=== PATIENT | male | born 1965 | race African-American/Black ===

== ENCOUNTER 2020-04-20 06:05 | Emergency (ER) | payer OTHER ==
[~2020-04-20] VITALS: Ht 167.6 cm; Wt 86.6 kg
[~2020-04-20 06:05] MED LIST: ALDACTONE25 MG PO; AMLODIPINE BESY MC; APAP500 PO; BACTRIM DS TAB1 EACH PO; BLACK CHERRY EXTRACT PO; CARVEDILOL25 MG PO; DEMADEX20 MG PO; FLAGYL500 MG PO; FLEXERIL PO; LISINOPRIL20 MG; LISINOPRIL40 MG PO; MEDROLDOSEPACK PO; ULTRAM 50MG TAB50 MG PO; ZESTRIL40 MG PO; ZYLOPRIM300 MG PO; [UNRECOGNIZED DRUG - OTHER]
[2020-04-20] MEDS ORDERED: CARVEDILOL25 MG PO (06:16)
[2020-04-20] MEDS ORDERED: CARDIZEM SR 60M60 MG (06:17)
[2020-04-20] MEDS ORDERED: FAMOTIDINE 20 M20 MG PO (06:18)
[2020-04-20] MEDS ORDERED: ANTACID325 MG PO (06:19)
[2020-04-20 07:41] LABS: HEMATOCRIT 24.5 % (42.0-52.0); HEMOGLOBIN 8.3 gm/dL (14.0-18.0); MCH 28.1 pg (26.0-34.0); MCHC 33.8 g/dL (28.0-37.0); RBC 2.96 mil/uL (4.50-6.00); RDW 15.7 % (10.5-14.5); WBC 5.8 thou/uL (4.0-11.0)
[2020-04-20 08:08] LABS: CALCIUM 6.6 mg/dL (8.5-10.1); CREATININE 15.8 mg/dL (0.7-1.3); POTASSIUM 4.4 mmol/L (3.5-5.1)
[2020-04-20] MEDS ORDERED: NORCO 5-325 TA1 EAC1 PO (08:27)
[2020-04-20 08:47] VITALS: BP 195/89
== END 2020-04-20 08:48 | disposition home or self-care (01) ==
LOC: ER 06:05
PROVIDERS: Emergency Medicine
DX: M25.561 Pain in right knee (principal); I12.0 Hypertensive chronic kidney disease with stage 5 chronic kidney disease or end stage renal disease; N18.6 End stage renal disease; M10.9 Gout, unspecified; Z86.718 Personal history of other venous thrombosis and embolism; Z79.899 Other long term (current) drug therapy; Z88.0 Allergy status to penicillin

== ENCOUNTER → 2020-08-18 | Outpatient (CLI) | payer OTHER ==
[~2020-08-18] MED LIST changes: +ANTACID325 MG PO; +CARDIZEM SR 60M60 MG; +FAMOTIDINE 20 M20 MG PO; +NORCO 5-325 TA1 EAC1 PO
== END ==
LOC: RAD 10:09
PROVIDERS: ATTEND Internal Medicine Nephrology
DX: M11.231 Other chondrocalcinosis, right wrist (principal); M25.831 Other specified joint disorders, right wrist

== ENCOUNTER → 2021-07-27 | Outpatient (CLI) | payer OTHER | LOC: SJCVC 13:42 | PROVIDERS: ATTEND Internal Medicine | DX: I49.8 Other specified cardiac arrhythmias (principal); R55 Syncope and collapse; I12.9 Hypertensive chronic kidney disease with stage 1 through stage 4 chronic kidney disease, or unspecified chronic kidney disease; N18.6 End stage renal disease; E78.5 Hyperlipidemia, unspecified; G47.33 Obstructive sleep apnea (adult) (pediatric); Z86.16 Personal history of COVID-19; Z79.899 Other long term (current) drug therapy; Z99.2 Dependence on renal dialysis; Z88.0 Allergy status to penicillin ==